=== PATIENT | male | born 1945 | race Hispanic/Latino ===

== ENCOUNTER 2017-07-04 05:41 | Inpatient (IN) | payer OTHER ==
[2017-06-30 12:00] VITALS: BP 112/65
[2017-06-30 12:40] LABS: BASOPHILS % (AUTO) 0.7 % (0.0-5.0); HEMATOCRIT 47.4 % (42-54); LYMPHOCYTES % (AUTO) 28.2 % (21.0-51.0); MEAN CORPUSCULAR HEMOGLOBIN 30.1 pg (27.0-33.0); MEAN CORPUSCULAR HGB CONC 34.1 g/dL (32.0-36.0); MEAN CORPUSCULAR VOLUME 88.1 fL (79-99); MONOCYTES % (AUTO) 7.2 % (3.0-13.0); NEUTROPHILS % (AUTO) 59.9 % (40.0-77.0); PLATELET COUNT (AUTO) 230 K/uL (130-400); RED BLOOD CELL COUNT(AUTO) 5.38 MIL/uL (4.50-6.20); RED CELL DISTRIBUTION WIDTH 13.1 % (11.0-15.5); WHITE BLOOD COUNT (AUTO) 10.3 K/uL (4.8-10.8)
[2017-06-30 12:58] LABS: CREATININE 1.2 mg/dL (0.5-1.5); POTASSIUM 4.4 mmol/L (3.5-5.1)
[2017-06-30 13:04] LABS: INR 0.94 (0.85-1.15); PARTIAL THROMBOPLASTIN TIME 27.2 SEC (26.3-35.5); PROTHROMBIN TIME 9.9 SEC (9.6-11.6)
[2017-06-30 13:11] LABS: APPEARANCE,URINE Clear (CLEAR); BILIRUBIN,URINE Negative (NEGATIVE); COLOR,URINE Yellow (YELLOW); GLUCOSE, URINE (UA) Negative (NEGATIVE); KETONES,URINE Negative (NEGATIVE); LEUKOCYTE ESTERASE ,URINE Negative (NEGATIVE); NITRATE,URINE Negative (NEGATIVE); OCCULT BLOOD,URINE Negative (NEGATIVE); PH,URINE 6.5 (5.0-8.0); PROTEIN,URINE Negative (NEGATIVE)
[~2017-07-04] VITALS: Ht 176.5 cm; Wt 87.5 kg
[2017-07-04] VITALS (17 sets, daily range): BP systolic 106–142; BP diastolic 55–81
[~2017-07-04 05:41] MED LIST: AEC81 PO; LISI-617 PO; METF850T2 PO; METO-391 PO; SIMV80TA5 PO; TUMS PO
[2017-07-04] MEDS ORDERED: ACETAMINOPHEN 325 MG TAB PO PRN ×3 (06:00→16:45)
[2017-07-04] MEDS ORDERED: SODIUM CHLORIDE 0.9% 500ML 500 ML IV SCH ×2 (06:00→16:41)
[2017-07-04] MEDS ORDERED: NITROGLYCERIN 5 MG/ML 10 ML VIAL IV ONE ×2 (07:09→21:23)
[2017-07-04] MEDS ORDERED: HEPARIN SODIUM 1000UNIT/ML 10ML VIAL ONE ×6 (07:09→22:18)
[2017-07-04] MEDS ORDERED: ISOVUE-370 50ML VIAL IV ONE ×2 (07:09→21:23)
[2017-07-04] MEDS ORDERED: SODIUM BICARB 50MEQ 50ML VIAL ONE ×3 (07:09→18:17)
[2017-07-04] MEDS ORDERED: LIDOCAINE HCL 2% 20ML ONE ×2 (07:10→21:23)
[2017-07-04] MEDS ORDERED: IOPAMIDOL-370 100 ML VIAL IV ONE ×3 (07:10→23:14)
[2017-07-04] MEDS ORDERED: SODIUM CHLORIDE 0.9% 1000ML 1,000 ML IV SCH ×2 (08:21→16:45)
[2017-07-04] MEDS ORDERED: GLUCAGON 1MG KIT 1 MG ML IM PRN ×2 (08:30→16:45)
[2017-07-04] MEDS ORDERED: DEXTROSE 50%-WATER 50 ML DISP.SYRIN IV PRN ×2 (08:30→16:45)
[2017-07-04] MEDS ORDERED: CEFUROXIME 1.5GM+NS 100ML 100 ML IV SCH (09:30)
[2017-07-04] MEDS ORDERED: WATER FOR INJECTION,STERILE 20 ML VIAL IJ SCH (10:34)
[2017-07-04] MEDS: CEFUROXIME SODIUM 1.5 GM VIAL IVP SCH ×2 (10:45→13:50)
[2017-07-04] MEDS ORDERED: INSULIN HUMULIN R 100 UNIT/ML 3ML SQ SCH (11:30)
[2017-07-04 11:39] LABS: CREATININE 1.1 mg/dL (0.5-1.5); EOSINOPHILS % (AUTO) 4.1 % (0.0-8.0); POTASSIUM 4.2 mmol/L (3.5-5.1); WHITE BLOOD COUNT (AUTO) 7.4 K/uL (4.8-10.8)
[2017-07-04 11:43] LABS: INR 0.96 (0.85-1.15); PARTIAL THROMBOPLASTIN TIME 27.2 SEC (26.3-35.5); PROTHROMBIN TIME 10.1 SEC (9.6-11.6)
[2017-07-04 11:45] LABS: BASOPHILS % (AUTO) 0.4 % (0.0-5.0); HEMATOCRIT 43.9 % (42-54); LYMPHOCYTES % (AUTO) 35.2 % (21.0-51.0); MEAN CORPUSCULAR HEMOGLOBIN 30.5 pg (27.0-33.0); MEAN CORPUSCULAR HGB CONC 34.9 g/dL (32.0-36.0); MEAN CORPUSCULAR VOLUME 87.4 fL (79-99); MONOCYTES % (AUTO) 6.1 % (3.0-13.0); NEUTROPHILS % (AUTO) 54.2 % (40.0-77.0); PLATELET COUNT (AUTO) 214 K/uL (130-400); RED BLOOD CELL COUNT(AUTO) 5.02 MIL/uL (4.50-6.20); RED CELL DISTRIBUTION WIDTH 13.1 % (11.0-15.5)
[2017-07-04 11:54] LABS: CHOLESTEROL 131 mg/dL (<200); HDL CHOLESTEROL 35 mg/dL (29-71); LDL DIRECT 82 mg/dL (0-99); TRIGLYCERIDES 134 mg/dL (30-200)
[2017-07-04 11:58] LABS: HEMOGLOBIN A1C 6.6 % (4.0-6.0)
[2017-07-04] MEDS ORDERED: PAPAVERINE HCL 30 MG/ML 2ML VIAL ONE (12:04)
[2017-07-04] MEDS ORDERED: OCTYL 2-CYANOACRYLATE 1 EACH TP ONE (12:04)
[2017-07-04] MEDS ORDERED: BACITRACIN 50,000 UNIT VIAL ONE (12:04)
[2017-07-04] MEDS ORDERED: ESMOLOL HCL 10 MG/ML 10 ML VIAL ONE (13:01)
[2017-07-04] MEDS ORDERED: GLYCOPYRROLATE 0.2 MG/ML 5 ML VIAL ONE (13:01)
[2017-07-04] MEDS ORDERED: EPINEPHRINE 1 MG/ML AMPULE ONE (13:01)
[2017-07-04] MEDS ORDERED: AMINOCAPROIC ACID 250 MG/ML 20 ML VIAL IV ONE (13:01)
[2017-07-04] MEDS ORDERED: MILRINONE-D5W 20 MG/100 ML 0 ML IV ONE (13:01)
[2017-07-04] MEDS ORDERED: PROTAMINE SULFATE 10 MG/ML 25ML VIAL IV ONE (13:01)
[2017-07-04] MEDS ORDERED: ROCURONIUM BROMIDE 10MG/1ML 5ML VL ONE (13:01)
[2017-07-04] MEDS ORDERED: NOREPINEPHRINE BITARTRATE 1 MG/1 ML ML IV ONE (13:01)
[2017-07-04] MEDS ORDERED: LIDOCAINE PF 2% 5ML ABBOJECT ONE (13:01)
[2017-07-04] MEDS ORDERED: NEOSTIGMINE METHYLSULFATE 1MG/ML IV ONE (13:01)
[2017-07-04] MEDS ORDERED: AMIODARONE HCL 900MG/18ML IV ONE (13:01)
[2017-07-04] MEDS ORDERED: PROPOFOL 10 MG/ML 20ML VIAL IV ONE (13:02)
[2017-07-04] MEDS ORDERED: FENTANYL CITRATE PF 50 MCG/1 ML 20ML VIAL IJ ONE (13:02)
[2017-07-04] MEDS ORDERED: MIDAZOLAM HCL 1 MG/ML 5ML VIAL ONE (13:02)
[2017-07-04] MEDS ORDERED: SODIUM CHLORIDE 0.9% 10 ML VIAL ONE (13:41)
[2017-07-04] MEDS ORDERED: THROMBIN-JMI 5000 UNIT/VIAL TP ONE (14:01)
[2017-07-04 14:20] LABS: ABG BASE EXCESS -1.8 mmol/L (-2.0-3.0); ABG HCO3 22.9 mmol/L (21.0-28.0); ABG OXYGEN SATURATION 99.4 % (95.0-99.0); ABG PCO2 39 mmHg (35-48)
[2017-07-04 16:24] LABS: ABG BASE EXCESS -6.5 mmol/L (-2.0-3.0); ABG PCO2 38 mmHg (35-48)
[2017-07-04] MEDS ORDERED: SODIUM BICARB 8.4% 50ML SYRINGE ONE ×2 (16:24→16:46)
[2017-07-04 16:42] LABS: ABG BASE EXCESS -1.1 mmol/L (-2.0-3.0); ABG HCO3 22.5 mmol/L (21.0-28.0); ABG OXYGEN SATURATION 98.7 % (95.0-99.0); ABG PCO2 34 mmHg (35-48)
[2017-07-04] MEDS ORDERED: INSULIN HUMULIN R 100 UNIT/ML 3ML ONE (16:44)
[2017-07-04] MEDS ORDERED: POTASSIUM CHLORIDE 20MEQ/100ML 100 ML IV ONE (16:44)
[2017-07-04] MEDS ORDERED: NITROGLYCERIN 50 MG/D5% WATER 250 BOT IV SCH (16:45)
[2017-07-04] MEDS ORDERED: ALBUMIN (HUMAN) 5% 250 ML IV PRN (16:45)
[2017-07-04] MEDS ORDERED: NOREPINEPHRINE 4MG/NS 250ML 250 ML IV PRN (16:45)
[2017-07-04] MEDS ORDERED: EPINEPHRINE 2 MG in SODIUM CHLORIDE 0.9% 250 ML IV PRN (16:45)
[2017-07-04] MEDS ORDERED: SODIUM BICARB 8.4% 50ML SYRINGE IV PRN (16:45)
[2017-07-04] MEDS ORDERED: SODIUM CHLORIDE 0.9% 250 ML IV PRN (16:45)
[2017-07-04] MEDS ORDERED: ACETAMINOPHEN 650 MG SUPPOSITORY RC PRN (16:45)
[2017-07-04] MEDS ORDERED: ONDANSETRON HCL 4 MG/2 ML VIAL IV PRN (16:45)
[2017-07-04] MEDS ORDERED: POTASSIUM PHOS 15 mMOL+NS250ML 250 ML IV PRN (16:45)
[2017-07-04] MEDS ORDERED: SODIUM CHLORIDE 0.9% 10 ML VIAL IVP PRN (16:45)
[2017-07-04] MEDS ORDERED: AMINOCAPROIC ACID 15,000 MG in SODIUM CHLORIDE 0.9% 250 ML IV SCH (16:45)
[2017-07-04] MEDS ORDERED: NICARDIPINE HCL 100 MG in SODIUM CHLORIDE 0.9% 100 ML IV PRN (16:45)
[2017-07-04] MEDS ORDERED: CALCIUM GLUCONATE 1 GM in SODIUM CHLORIDE 0.9% 50 ML IV PRN (16:45)
[2017-07-04] MEDS ORDERED: FENTANYL CITRATE PF 50 MCG/1 ML 5ML AMP IV ONE (16:52)
[2017-07-04] MEDS ORDERED: EPHEDRINE SULFATE 50 MG/ML AMPULE ONE (16:55)
[2017-07-04 18:02] LABS: HEMATOCRIT 41.6 % (42-54); MEAN CORPUSCULAR HEMOGLOBIN 29.4 pg (27.0-33.0); MEAN CORPUSCULAR HGB CONC 33.2 g/dL (32.0-36.0); MEAN CORPUSCULAR VOLUME 88.6 fL (79-99); PLATELET COUNT (AUTO) 326 K/uL (130-400); RED CELL DISTRIBUTION WIDTH 13.3 % (11.0-15.5)
[2017-07-04 18:07] LABS: WHITE BLOOD COUNT (AUTO) 39.7 K/uL (4.8-10.8)
[2017-07-04 18:13] LABS: ABG BASE EXCESS -9.1 mmol/L (-2.0-3.0); ABG HCO3 16.6 mmol/L (21.0-28.0); ABG OXYGEN SATURATION 97.2 % (95.0-99.0); ABG PCO2 35 mmHg (35-48)
[2017-07-04 18:17] LABS: CREATININE 1.5 mg/dL (0.5-1.5); MAGNESIUM 1.6 mg/dL (1.80-2.40); PHOSPHORUS 3.8 mg/dL (2.5-4.9)
[2017-07-04] MEDS: POTASSIUM CHLORIDE 20MEQ/100ML 100 ML IV PRN ×2 (18:41→19:31)
[2017-07-04 19:34] LABS: BAND NEUTROPHILS % (MANUAL) 3 % (0-2); LYMPHOCYTES % (MANUAL) 11 % (22-44); MAN.DIFF COMMENT-IMPRESSION MANUAL DIFFERENTIAL; METAMYELOCYTES % 2 % (0-0); MONOCYTES % (MANUAL) 4 % (2-9); PLATELET MORPHOLOGY COMMENT ADEQUATE; SEGMENTED NEUTROPHILS % 80 % (40-70)
[2017-07-04] MEDS ORDERED: SODIUM BICARB 50MEQ 50ML VIAL IV ONE (20:00)
[2017-07-04] MEDS ORDERED: NITROGLYCERIN 50 MG/D5% WATER 250 BOT IV PRN (20:45)
[2017-07-04 20:49] LABS: ABG HCO3 17.9 mmol/L (21.0-28.0); ABG OXYGEN SATURATION 97.3 % (95.0-99.0); ABG PCO2 34 mmHg (35-48)
[2017-07-04] MEDS: MORPHINE SULFATE 2 MG/ML 1ML SYG IV PRN (21:12)
[2017-07-04] MEDS ORDERED: ATROPINE SULFATE 0.1 MG/ML 10 ML SYG IVP ONE (21:26)
[2017-07-04] MEDS ORDERED: DOPAMINE HCL 400 MG/D5%-WATER 0 ML IV ONE (21:26)
[2017-07-04] MEDS ORDERED: EPINEPHRINE 8 MG in SODIUM CHLORIDE 0.9% 250 ML IV PRN (21:32)
[2017-07-04] MEDS ORDERED: MORPHINE SULFATE 10 MG/ML 1ML SYG ONE (21:55)
[2017-07-04 22:05] LABS: CREATINE KINASE MB 42.1 ng/mL (0.5-3.6)
[2017-07-04 22:06] LABS: TROPONIN I 7.42 ng/mL (0.00-0.06)
[2017-07-05] VITALS (23 sets, daily range): BP systolic 105–168; BP diastolic 47–70
[2017-07-05] MEDS: MORPHINE SULFATE 4 MG/1ML SYG IV PRN ×2 (01:07→09:04)
[2017-07-05] MEDS: FAMOTIDINE/PF 20 MG/2 ML VIAL IV SCH ×3 (01:13→20:42)
[2017-07-05] MEDS: CEFUROXIME 1.5GM+NS 100ML 100 ML IV SCH ×2 (01:13→12:26)
[2017-07-05] MEDS: PROPOFOL 1000 MG/100 ML 100 ML IV PRN ×2 (01:34→07:37)
[2017-07-05] MEDS: MAGNESIUM 2GM PREMIX 50ML 50 ML IV PRN ×2 (01:46→22:34)
[2017-07-05] MEDS ORDERED: CLOPIDOGREL BISULFATE 75 MG TAB PO SCH (02:00)
[2017-07-05] MEDS ORDERED: ASPIRIN 325 MG TABLET PO SCH (02:00)
[2017-07-05 02:39] LABS: CREATINE KINASE MB 277.6 ng/mL (0.5-3.6)
[2017-07-05 03:18] LABS: TROPONIN I 288.93 ng/mL (0.00-0.06)
[2017-07-05] MEDS: POTASSIUM CHLORIDE 20MEQ/100ML 100 ML IV PRN ×2 (03:43→05:29)
[2017-07-05 03:57] LABS: HEMATOCRIT 37.8 % (42-54); MEAN CORPUSCULAR HEMOGLOBIN 30.5 pg (27.0-33.0); MEAN CORPUSCULAR HGB CONC 34.5 g/dL (32.0-36.0); MEAN CORPUSCULAR VOLUME 88.4 fL (79-99); PLATELET COUNT (AUTO) 286 K/uL (130-400); RED BLOOD CELL COUNT(AUTO) 4.27 MIL/uL (4.50-6.20); RED CELL DISTRIBUTION WIDTH 13.2 % (11.0-15.5); WHITE BLOOD COUNT (AUTO) 26.2 K/uL (4.8-10.8)
[2017-07-05 04:21] LABS: CREATININE 1.7 mg/dL (0.5-1.5); MAGNESIUM 1.5 mg/dL (1.80-2.40); PHOSPHORUS 2.2 mg/dL (2.5-4.9); POTASSIUM 3.2 mmol/L (3.5-5.1)
[2017-07-05] MEDS ORDERED: PHARMACY COMMUNICATION MISC SCH (05:15)
[2017-07-05] MEDS ORDERED: CLOPIDOGREL BISULFATE 300 MG TAB PO SCH (07:30)
[2017-07-05] MEDS: ASPIRIN 81MG TAB.CHEW PO SCH (08:57)
[2017-07-05 09:42] LABS: CREATINE KINASE MB 366.3 ng/mL (0.5-3.6); POTASSIUM 4.5 mmol/L (3.5-5.1)
[2017-07-05] MEDS: INSULIN REGULAR, HUMAN 3ML 100 UNIT in SODIUM CHLORIDE 0.9% 99 ML IV SCH ×4 (09:49→21:09)
[2017-07-05 10:26] LABS: CREATININE 1.3 mg/dL (0.5-1.5); MAGNESIUM 2.3 mg/dL (1.80-2.40); POTASSIUM 4.6 mmol/L (3.5-5.1)
[2017-07-05 10:30] LABS: TROPONIN I 112.04 ng/mL (0.00-0.06)
[2017-07-05 12:34] LABS: ABG BASE EXCESS 1.3 mmol/L (-2.0-3.0); ABG HCO3 26.1 mmol/L (21.0-28.0); ABG PCO2 42 mmHg (35-48)
[2017-07-05] MEDS: HYDROCODONE/ACETAMINOPHEN 5/325 MG TAB PO PRN ×2 (15:34→21:48)
[2017-07-05] MEDS ORDERED: FUROSEMIDE 10 MG/ML 2ML VIAL IV SCH (18:45)
[2017-07-05] MEDS: MORPHINE SULFATE 2 MG/ML 1ML SYG IV PRN (18:48)
[2017-07-05] MEDS: ATORVASTATIN CALCIUM 40 MG TABLET PO SCH (20:42)
[2017-07-05] MEDS ORDERED: METOPROLOL TARTRATE 25 MG TAB PO SCH (21:00)
[2017-07-05] MEDS ORDERED: ENOXAPARIN SODIUM 80 MG/0.8 ML SQ SCH (22:00)
[2017-07-05 22:31] LABS: MAGNESIUM 1.9 mg/dL (1.80-2.40); POTASSIUM 4.3 mmol/L (3.5-5.1)
[2017-07-06] VITALS (25 sets, daily range): BP systolic 95–129; BP diastolic 50–74
[2017-07-06] MEDS ORDERED: ENOXAPARIN SODIUM 80 MG/0.8 ML SQ SCH
[2017-07-06] MEDS: CEFUROXIME 1.5GM+NS 100ML 100 ML IV SCH (00:26)
[2017-07-06] MEDS: HYDROCODONE/ACETAMINOPHEN 5/325 MG TAB PO PRN ×3 (04:12→14:26)
[2017-07-06 04:54] LABS: CREATININE 1.2 mg/dL (0.5-1.5); MAGNESIUM 2.4 mg/dL (1.80-2.40); PHOSPHORUS 4.3 mg/dL (2.5-4.9); POTASSIUM 4.1 mmol/L (3.5-5.1)
[2017-07-06] MEDS: POTASSIUM CHLORIDE 20MEQ/100ML 100 ML IV PRN (05:01)
[2017-07-06] MEDS ORDERED: CAMPHOR/MENTHOL/PHENOL 10 GM OINT TP SCH (06:15)
[2017-07-06] MEDS: INSULIN HUMULIN R 100 UNIT/ML 3ML SQ SCH ×4 (06:35→21:04)
[2017-07-06] MEDS: ASPIRIN 81MG TAB.CHEW PO SCH (08:21)
[2017-07-06] MEDS: PANTOPRAZOLE SODIUM 40 MG TABLET.DR PO SCH (08:21)
[2017-07-06] MEDS: METOPROLOL TARTRATE 25 MG TAB PO SCH ×2 (08:22→20:59)
[2017-07-06] MEDS: FAMOTIDINE/PF 20 MG/2 ML VIAL IV SCH ×2 (08:25→20:58)
[2017-07-06] MEDS ORDERED: FOLIC ACID 5 MG/ML 10 ML VIAL IM SCH (09:15)
[2017-07-06] MEDS: APIXABAN 5 MG TABLET PO SCH ×2 (14:25→20:59)
[2017-07-06] MEDS: ATORVASTATIN CALCIUM 40 MG TABLET PO SCH (20:58)
[2017-07-07] VITALS (22 sets, daily range): BP systolic 84–121; BP diastolic 55–72
[2017-07-07] MEDS: HYDROCODONE/ACETAMINOPHEN 5/325 MG TAB PO PRN ×3 (03:05→18:44)
[2017-07-07 05:16] LABS: HEMATOCRIT 30.9 % (42-54); MEAN CORPUSCULAR HEMOGLOBIN 30.6 pg (27.0-33.0); MEAN CORPUSCULAR HGB CONC 34.8 g/dL (32.0-36.0); PLATELET COUNT (AUTO) 157 K/uL (130-400); RED BLOOD CELL COUNT(AUTO) 3.51 MIL/uL (4.50-6.20); RED CELL DISTRIBUTION WIDTH 13.3 % (11.0-15.5); WHITE BLOOD COUNT (AUTO) 19.2 K/uL (4.8-10.8)
[2017-07-07 05:28] LABS: POTASSIUM 3.9 mmol/L (3.5-5.1)
[2017-07-07 05:48] LABS: BAND NEUTROPHILS % (MANUAL) 13 % (0-2); LYMPHOCYTES % (MANUAL) 14 % (22-44); MAN.DIFF COMMENT-IMPRESSION MANUAL DIFFERENTIAL; MONOCYTES % (MANUAL) 1 % (2-9); SEGMENTED NEUTROPHILS % 72 % (40-70)
[2017-07-07] MEDS: POTASSIUM CHLORIDE 20MEQ/100ML 100 ML IV PRN (05:56)
[2017-07-07] MEDS: INSULIN HUMULIN R 100 UNIT/ML 3ML SQ SCH ×4 (06:05→20:38)
[2017-07-07] MEDS: CLOPIDOGREL BISULFATE 75 MG TAB PO SCH (09:01)
[2017-07-07] MEDS: ASPIRIN 81MG TAB.CHEW PO SCH (09:02)
[2017-07-07] MEDS: FOLIC ACID 1 MG TABLET PO SCH (09:02)
[2017-07-07] MEDS: APIXABAN 5 MG TABLET PO SCH ×2 (09:02→20:32)
[2017-07-07] MEDS: PANTOPRAZOLE SODIUM 40 MG TABLET.DR PO SCH (09:02)
[2017-07-07] MEDS: METOPROLOL TARTRATE 25 MG TAB PO SCH ×3 (09:02→20:32)
[2017-07-07] MEDS: FAMOTIDINE/PF 20 MG/2 ML VIAL IV SCH ×2 (09:03→20:33)
[2017-07-07] MEDS: ATORVASTATIN CALCIUM 40 MG TABLET PO SCH (20:32)
[2017-07-07] MEDS ORDERED: LOSARTAN 50 MG TABLET PO SCH (21:00)
[2017-07-08] VITALS (20 sets, daily range): BP systolic 84–122; BP diastolic 52–77
[2017-07-08 04:18] LABS: HEMATOCRIT 31.7 % (42-54); MEAN CORPUSCULAR HEMOGLOBIN 31.1 pg (27.0-33.0); MEAN CORPUSCULAR HGB CONC 35.1 g/dL (32.0-36.0); MEAN CORPUSCULAR VOLUME 88.4 fL (79-99); NUCLEATED RED BLOOD CELLS 0.1 % (0.0-0.19); PLATELET COUNT (AUTO) 186 K/uL (130-400); RED BLOOD CELL COUNT(AUTO) 3.58 MIL/uL (4.50-6.20); RED CELL DISTRIBUTION WIDTH 12.9 % (11.0-15.5); WHITE BLOOD COUNT (AUTO) 18.5 K/uL (4.8-10.8)
[2017-07-08 04:25] LABS: BAND NEUTROPHILS % (MANUAL) 3 % (0-2); EOSINOPHILS % (MANUAL) 2 % (1-6); LYMPHOCYTES % (MANUAL) 19 % (22-44); MAN.DIFF COMMENT-IMPRESSION MANUAL DIFFERENTIAL; MONOCYTES % (MANUAL) 5 % (2-9); PLATELET MORPHOLOGY COMMENT ADEQUATE; SEGMENTED NEUTROPHILS % 71 % (40-70)
[2017-07-08] MEDS: INSULIN HUMULIN R 100 UNIT/ML 3ML SQ SCH ×4 (06:45→21:14)
[2017-07-08] MEDS: FAMOTIDINE/PF 20 MG/2 ML VIAL IV SCH (09:00)
[2017-07-08] MEDS: FOLIC ACID 1 MG TABLET PO SCH (09:30)
[2017-07-08] MEDS: METOPROLOL TARTRATE 25 MG TAB PO SCH ×3 (09:30→20:52)
[2017-07-08] MEDS: APIXABAN 5 MG TABLET PO SCH ×2 (09:30→20:51)
[2017-07-08] MEDS: PANTOPRAZOLE SODIUM 40 MG TABLET.DR PO SCH (09:30)
[2017-07-08] MEDS: ASPIRIN 81MG TAB.CHEW PO SCH (09:30)
[2017-07-08] MEDS: CLOPIDOGREL BISULFATE 75 MG TAB PO SCH (09:30)
[2017-07-08] MEDS: HYDROCODONE/ACETAMINOPHEN 5/325 MG TAB PO PRN (09:31)
[2017-07-08] MEDS ORDERED: GABAPENTIN 100 MG CAPSULE PO SCH (10:00)
[2017-07-08] MEDS ORDERED: CALCIUM GLUCONATE 1 GM in SODIUM CHLORIDE 0.9% 50 ML IV SCH (19:00)
[2017-07-08] MEDS: GABAPENTIN 100 MG CAPSULE PO SCH (20:51)
[2017-07-08] MEDS: ATORVASTATIN CALCIUM 40 MG TABLET PO SCH (20:51)
[2017-07-08] MEDS: AMIODARONE HCL 200 MG TABLET PO SCH (20:51)
[2017-07-09] VITALS (13 sets, daily range): BP systolic 96–116; BP diastolic 47–71
[2017-07-09] MEDS: INSULIN HUMULIN R 100 UNIT/ML 3ML SQ SCH ×4 (06:59→21:00)
[2017-07-09] MEDS: TRAMADOL HCL 50 MG TABLET PO PRN ×2 (08:48→19:03)
[2017-07-09] MEDS: FOLIC ACID 1 MG TABLET PO SCH (08:48)
[2017-07-09] MEDS: PANTOPRAZOLE SODIUM 40 MG TABLET.DR PO SCH (08:48)
[2017-07-09] MEDS: APIXABAN 5 MG TABLET PO SCH ×2 (08:48→22:09)
[2017-07-09] MEDS: AMIODARONE HCL 200 MG TABLET PO SCH ×3 (08:49→22:09)
[2017-07-09] MEDS: ASPIRIN 81MG TAB.CHEW PO SCH (08:49)
[2017-07-09] MEDS: CLOPIDOGREL BISULFATE 75 MG TAB PO SCH (08:49)
[2017-07-09] MEDS: GABAPENTIN 100 MG CAPSULE PO SCH ×2 (08:49→22:10)
[2017-07-09] MEDS: METOPROLOL TARTRATE 25 MG TAB PO SCH ×3 (08:49→23:19)
[2017-07-09] MEDS: POTASSIUM CHLORIDE 20 MEQ ERTAB PO SCH (14:59)
[2017-07-09] MEDS: FUROSEMIDE 20 MG TABLET PO SCH (15:01)
[2017-07-09] MEDS: ATORVASTATIN CALCIUM 40 MG TABLET PO SCH (22:09)
[2017-07-10] VITALS (7 sets, daily range): BP systolic 94–125; BP diastolic 57–78
[2017-07-10] MEDS: METOPROLOL TARTRATE 25 MG TAB PO SCH ×3 (05:42→22:00)
[2017-07-10] MEDS: INSULIN HUMULIN R 100 UNIT/ML 3ML SQ SCH ×4 (05:43→21:08)
[2017-07-10] MEDS: GABAPENTIN 100 MG CAPSULE PO SCH (10:11)
[2017-07-10] MEDS: CLOPIDOGREL BISULFATE 75 MG TAB PO SCH (10:11)
[2017-07-10] MEDS: FUROSEMIDE 20 MG TABLET PO SCH (10:12)
[2017-07-10] MEDS: POTASSIUM CHLORIDE 20 MEQ ERTAB PO SCH (10:13)
[2017-07-10] MEDS: FOLIC ACID 1 MG TABLET PO SCH (10:13)
[2017-07-10] MEDS: AMIODARONE HCL 200 MG TABLET PO SCH ×3 (10:14→21:06)
[2017-07-10] MEDS: PANTOPRAZOLE SODIUM 40 MG TABLET.DR PO SCH (10:14)
[2017-07-10] MEDS: APIXABAN 5 MG TABLET PO SCH ×2 (10:14→21:06)
[2017-07-10] MEDS: ASPIRIN 81MG TAB.CHEW PO SCH (10:14)
[2017-07-10] MEDS: TRAMADOL HCL 50 MG TABLET PO PRN (20:39)
[2017-07-10] MEDS: ATORVASTATIN CALCIUM 40 MG TABLET PO SCH (21:06)
[2017-07-11 03:25] VITALS: BP 103/66
[2017-07-11 04:17] LABS: CREATININE 1.1 mg/dL (0.5-1.5); POTASSIUM 3.9 mmol/L (3.5-5.1)
[2017-07-11] MEDS: METOPROLOL TARTRATE 25 MG TAB PO SCH ×2 (06:00→20:53)
[2017-07-11] MEDS: INSULIN HUMULIN R 100 UNIT/ML 3ML SQ SCH ×4 (06:42→20:53)
[2017-07-11] MEDS: TRAMADOL HCL 50 MG TABLET PO PRN ×2 (06:46→20:56)
[2017-07-11 07:32] VITALS: BP 106/67
[2017-07-11] MEDS: PANTOPRAZOLE SODIUM 40 MG TABLET.DR PO SCH (08:43)
[2017-07-11] MEDS: ASPIRIN 81MG TAB.CHEW PO SCH (08:43)
[2017-07-11] MEDS: AMIODARONE HCL 200 MG TABLET PO SCH ×2 (08:43→20:53)
[2017-07-11] MEDS: FUROSEMIDE 20 MG TABLET PO SCH (08:43)
[2017-07-11] MEDS: CLOPIDOGREL BISULFATE 75 MG TAB PO SCH (08:43)
[2017-07-11] MEDS: FOLIC ACID 1 MG TABLET PO SCH (08:43)
[2017-07-11] MEDS: APIXABAN 5 MG TABLET PO SCH ×2 (08:43→20:52)
[2017-07-11] MEDS: POTASSIUM CHLORIDE 20 MEQ ERTAB PO SCH (08:44)
[2017-07-11] MEDS: LACTULOSE 20 GM/30 ML UDCUP PO PRN (09:18)
[2017-07-11 11:24] VITALS: BP 104/64
[2017-07-11 16:17] VITALS: BP 113/70
[2017-07-11 19:04] VITALS: BP 118/64
[2017-07-11] MEDS: ATORVASTATIN CALCIUM 40 MG TABLET PO SCH (20:53)
[2017-07-11 23:14] VITALS: BP 105/62
[2017-07-12 03:33] VITALS: BP 115/53
[2017-07-12] MEDS: LACTULOSE 20 GM/30 ML UDCUP PO PRN (06:18)
[2017-07-12] MEDS: INSULIN HUMULIN R 100 UNIT/ML 3ML SQ SCH ×3 (06:54→16:30)
[2017-07-12 07:27] VITALS: BP 118/76
[2017-07-12] MEDS: METOPROLOL TARTRATE 25 MG TAB PO SCH (08:23)
[2017-07-12] MEDS: APIXABAN 5 MG TABLET PO SCH (08:23)
[2017-07-12] MEDS: PANTOPRAZOLE SODIUM 40 MG TABLET.DR PO SCH (08:23)
[2017-07-12] MEDS: ASPIRIN 81MG TAB.CHEW PO SCH (08:23)
[2017-07-12] MEDS: FOLIC ACID 1 MG TABLET PO SCH (08:23)
[2017-07-12] MEDS: CLOPIDOGREL BISULFATE 75 MG TAB PO SCH (08:23)
[2017-07-12] MEDS: AMIODARONE HCL 200 MG TABLET PO SCH (08:23)
[2017-07-12] MEDS: POTASSIUM CHLORIDE 20 MEQ ERTAB PO SCH (08:24)
[2017-07-12] MEDS: FUROSEMIDE 20 MG TABLET PO SCH (08:24)
[2017-07-12] MEDS: TRAMADOL HCL 50 MG TABLET PO PRN (09:08)
[2017-07-12 11:29] VITALS: BP 96/58
[2017-07-12 16:17] VITALS: BP 105/67
[2017-09-26] MEDS ORDERED: FOLI1TAB15 PO (14:47)
[2017-09-26] MEDS ORDERED: PANT40TA25 PO (14:47)
[2017-09-26] MEDS ORDERED: AMIO200T2 PO (14:47)
[2017-09-26] MEDS ORDERED: ATOR-2 PO (14:47)
[2017-09-26] MEDS ORDERED: LOSA50TA37 PO (14:47)
[2017-09-26] MEDS ORDERED: APIX5TAB PO (14:47)
[2017-09-26] MEDS ORDERED: METO25TA6 PO (14:47)
[2017-09-28] MEDS ORDERED: CLOP75TA32 PO (10:51)
[2017-09-28] MEDS ORDERED: FURO20TA6 PO (10:56)
[2017-09-28] MEDS ORDERED: SPIR25TA4 PO (10:56)
== END 2017-07-12 19:30 | DRG 231 ==
LOC: DAH 05:41 → 2CV 06:00 → 2CH 07-06 16:00 → 2DH 07-09 17:12
PROVIDERS: ADMIT Thoracic Surgery (Cardiothoracic Vascular Surgery); ATTEND Thoracic Surgery (Cardiothoracic Vascular Surgery)
PROC: 4A023N7 Measurement of Cardiac Sampling and Pressure, Left Heart, Percutaneous Approach (ICD-10-PCS; 2017-07-04)
PROC: 06BQ3ZZ Excision of Left Saphenous Vein, Percutaneous Approach (ICD-10-PCS; 2017-07-04)
PROC: B2111ZZ Fluoroscopy of Multiple Coronary Arteries using Low Osmolar Contrast (ICD-10-PCS; 2017-07-04)
PROC: B2151ZZ Fluoroscopy of Left Heart using Low Osmolar Contrast (ICD-10-PCS; 2017-07-04)
PROC: 5A1935Z Respiratory Ventilation, Less than 24 Consecutive Hours (ICD-10-PCS; 2017-07-04)
PROC: 0BH17EZ Insertion of Endotracheal Airway into Trachea, Via Natural or Artificial Opening (ICD-10-PCS; 2017-07-04)
PROC: 021209W Bypass Coronary Artery, Three Arteries from Aorta with Autologous Venous Tissue, Open Approach (ICD-10-PCS; 2017-07-04 13:38)
PROC: 02100Z9 Bypass Coronary Artery, One Artery from Left Internal Mammary, Open Approach (ICD-10-PCS; 2017-07-04 13:38)
PROC: 027135Z Dilation of Coronary Artery, Two Arteries with Two Drug-eluting Intraluminal Devices, Percutaneous Approach (ICD-10-PCS; principal; 2017-07-05)
PROC: 02703ZZ Dilation of Coronary Artery, One Artery, Percutaneous Approach (ICD-10-PCS; 2017-07-05)
DX: I25.119 Atherosclerotic heart disease of native coronary artery with unspecified angina pectoris (principal); I21.3 ST elevation (STEMI) myocardial infarction of unspecified site; N17.9 Acute kidney failure, unspecified; D68.59 Other primary thrombophilia; E11.22 Type 2 diabetes mellitus with diabetic chronic kidney disease; D69.6 Thrombocytopenia, unspecified; D62 Acute posthemorrhagic anemia; N18.9 Chronic kidney disease, unspecified; D72.829 Elevated white blood cell count, unspecified; E11.65 Type 2 diabetes mellitus with hyperglycemia; E78.5 Hyperlipidemia, unspecified; I12.9 Hypertensive chronic kidney disease with stage 1 through stage 4 chronic kidney disease, or unspecified chronic kidney disease; I25.82 Chronic total occlusion of coronary artery; I51.3 Intracardiac thrombosis, not elsewhere classified; Z79.01 Long term (current) use of anticoagulants; Z79.02 Long term (current) use of antithrombotics/antiplatelets; Z79.82 Long term (current) use of aspirin; Z82.3 Family history of stroke; Z82.49 Family history of ischemic heart disease and other diseases of the circulatory system
CPT/HCPCS: 33967; 36415; 36600; 71045; 80048; 80061; 81003; 82330; 82435; 82550; 82553; 82803; 82947; 82948; 83036; 83090; 83605; 83735; 83874; 84100; 84132; 84295; 84484; 85018; 85025; 85027; 85210; 85220; 85300; 85303; 85305; 85306; 85347; 85610; 85730; 85732; 86850; 86900; 86901; 86922; 88313; 93005; 93306; 93455; 93458; 93880; 94002; 94003; 94010; 94150; A4606; A7048; C1725; C1760; C1769; C1887; C1894; C9600; J0171; J0282; J0461; J0610; J0697; J1265; J1644; J1650; J1815; J1940; J2001; J2250; J2260; J2270; J2405; J2440; J2704; J2710; J2720; J3010; J3475; J3480; J3490; J7030; J7040; P9045; Q9967

== ENCOUNTER → 2017-09-05 | Outpatient (CLI) | payer OTHER ==
[~2017-09-05] MED LIST changes: +AMIO200T2 PO; +APIX5TAB PO; +ATOR-2 PO; +CLOP75TA32 PO; +FOLI1TAB15 PO; +FURO20TA6 PO; +LOSA50TA37 PO; +METO25TA6 PO; +PANT40TA25 PO; +SPIR25TA4 PO
== END | disposition home or self-care (01) ==
LOC: SHCH 14:20
PROVIDERS: ATTEND Internal Medicine Cardiovascular Disease
DX: I08.1 Rheumatic disorders of both mitral and tricuspid valves (principal); I25.10 Atherosclerotic heart disease of native coronary artery without angina pectoris; I10 Essential (primary) hypertension
CPT/HCPCS: 93306

== ENCOUNTER → 2019-01-30 | Outpatient (CLI) | payer OTHER ==
[~2019-01-30] MED LIST changes: -AEC81 PO; -AMIO200T2 PO; +AMIO200T5 PO; -LISI-617 PO; -LOSA50TA37 PO; +LOSA50TA64 PO; +METF-445 PO; -METF850T2 PO; -METO-391 PO; -SIMV80TA5 PO; -SPIR25TA4 PO; +SPIR25TA6 PO; -TUMS PO
== END | disposition home or self-care (01) ==
LOC: SHCH 10:52
PROVIDERS: ATTEND Internal Medicine Cardiovascular Disease
DX: I08.1 Rheumatic disorders of both mitral and tricuspid valves (principal); I10 Essential (primary) hypertension
CPT/HCPCS: 93306

== ENCOUNTER → 2020-04-29 | Outpatient (CLI) | payer OTHER ==
[~2020-04-29] MED LIST changes: -AMIO200T5 PO; +AMIO200T6 PO; -PANT40TA25 PO; +PANT40TA54 PO
== END | disposition home or self-care (01) ==
LOC: SHCH 10:42
PROVIDERS: ATTEND Internal Medicine Cardiovascular Disease
DX: R01.1 Cardiac murmur, unspecified (principal); R09.89 Other specified symptoms and signs involving the circulatory and respiratory systems
CPT/HCPCS: 93306; 93356; 93880

== ENCOUNTER → 2023-02-07 | Outpatient (CLI) | payer OTHER ==
[~2023-02-07] MED LIST changes: -AMIO200T6 PO; +AMIO200T68 PO
== END | disposition home or self-care (01) ==
LOC: SHCH 08:37
PROVIDERS: ATTEND Internal Medicine Cardiovascular Disease
DX: I11.9 Hypertensive heart disease without heart failure (principal); R06.00 Dyspnea, unspecified; E11.9 Type 2 diabetes mellitus without complications; E78.5 Hyperlipidemia, unspecified; Z95.1 Presence of aortocoronary bypass graft
CPT/HCPCS: 93306

== ENCOUNTER → 2024-06-28 | Outpatient (CLI) | payer OTHER ==
--- NOTE | 2024-07-03 06:49 | HMCSR ---
APPROVED REPORT EXAM: Two-dimensional and M-mode echocardiogram with Doppler and color Doppler. INDICATION ICD: I25.5 Ischemic cardiomyopathy Murmur Abnormal ECG 2D Dimensions RVDd3.6 cmLVEF(%)47.4 (>50%)LVED Vol(simp.)146.0 mL IVSd0.8 (0.7-1.1cm)FS(%)24 %LVES Vol(simp.)77.0 mL LVDd4.7 (3.8-5.6cm)Ao Root(2D)3.2 (2.0-3.7cm)LVEF(%, simp.)48 % PWd0.7 (0.7-1.1cm)LVOT diam1.8 (1.8-2.4cm)LA ESV INDEX (BP)32.15 mL/m2 LVDs3.6 (2.5-4.0cm)IVC diam1.8 cm Aortic Valve AoV Vmax1.1 m/Crystal Peak GR4.9 mmHgLVOT Vmax1.0 m/s AoV VTI0.3 mAo Mean GR2.4 mmHgLVOT VTI0.25 m JANAK (VMAX)2.4 cm2AVA (VTI) 2.4 cm2 Mitral Valve MV E Vmax69.3 cm/sDECEL Lsdo759 ms MV A Vmax81.3 cm/sP 1/2 T64 ms E/A ratio0.9MVA (PHT)3.5 cm2 MR Max PG84 mmHg TDI E/E' Medial9.6E/E' Lateral7.6 Pulmonary Valve PV Vmax0.9 m/sPV VTI0.23 mPV Mean GR2 mmHg PV Peak GR3.3 mmHgPI End Destiny. Arsalan 1.1 cm/s Tricuspid Valve TR Vmax2.5 m/sRAP (EST) 8 scNtHTUH87.6 mmHg TR Peak GR24.6 mmHg Left Ventricle Left ventricular cavity size is normal. Thinned, akinetic to dyakinetic apical cap, suggestive of rem ote apical CA. There is normal left ventricular wall thickness. LVEF is 40%. No left ventricle thromb us noted on this study. Indeterminate diastolic dysfunction. Right Ventricle The right ventricle is normal size. Right ventricular systolic function is mildly reduced. Atria The left atrium size is normal. The right atrium size is normal. Aortic Valve Aortic valve is trileaflet. Aortic valve leaflets are sclerotic but open well. Trace aortic regurgita tion. There is no aortic valvular stenosis. Mitral Valve Mitral valve leaflets are mildly sclerotic but opens well. Mitral regurgitation is trace to mild. The re is no mitral valve stenosis. Tricuspid Valve The tricuspid valve leaflets appear normal. There is trace to mild tricuspid regurgitation. Right mari tricular systolic pressure is estimated at 30-40 mmHg. Pulmonic Valve The pulmonic valve leaflets are thin and pliable; valve motion is normal. There is trace to mild valv ular regurgitation. Great Vessels The aortic root is normal in size. IVC is dilated and collapses >50% with inspiration. Pericardium No pericardial effusion. Conclusion Left ventricular cavity size is normal. LVEF is 40%. Thinned, akinetic to dyakinetic apical cap, suggestive of remote apical CA. The right ventricle is normal size. Right ventricular systolic function is mildly reduced. The left atrium size is normal. Aortic valve is trileaflet. Aortic valve leaflets are sclerotic but open well. Trace aortic regurgitation. Mitral valve leaflets are mildly sclerotic but opens well. Mitral regurgitation is trace to mild. There is trace to mild tricuspid regurgitation. Right ventricular systolic pressure is estimated at 30-40 mmHg. There is trace to mild valvular regurgitation. The aortic root is normal in size. IVC is dilated and collapses >50% with inspiration. No pericardial effusion.
== END | disposition home or self-care (01) ==
LOC: SHCH 12:40
PROVIDERS: ATTEND Internal Medicine Cardiovascular Disease
DX: I08.8 Other rheumatic multiple valve diseases (principal); I42.0 Dilated cardiomyopathy; R94.31 Abnormal electrocardiogram [ECG] [EKG]; R01.1 Cardiac murmur, unspecified
CPT/HCPCS: 93306

== ENCOUNTER → 2024-07-30 | Outpatient (CLI) | payer OTHER ==
[~2024-07-30] MED LIST changes: +IOHEXOL 350 MG/ML 100ML INFUS..BTL IV ONE
--- NOTE | 2024-07-30 12:38 | HMCIMG ---
CT CARDIAC ANGIO W/CONT. CCTA REASON: CHEST PAIN COMPARISON: None TECHNIQUE: Images are obtained through the heart in the axial plane before and during bolus IV contrast infusion, 100 cc Omnipaque 350. 2-D and 3-D multiplanar reconstruction images were then performed. The injection had to be repeated once due to motion artifact on the first sequence, total contrast volume was 200 cc. FINDINGS: This dictation is for the noncardiac findings only. Cardiac and coronary artery findings are reported separately. Visualized portions of the lungs are clear. There is normal-appearing pulmonary interstitium. There is no hilar or mediastinal lymphadenopathy. Chest wall structures appear unremarkable. IMPRESSION: 1. Unremarkable noncardiac portions of CT cardiac angiography.
--- NOTE | 2024-08-09 11:32 | CARDIOLOGY ---
RAD REPORT: [facility] CT ANGIO RADIOLOGY REPORT: CORONARY CT ANGIOGRAPHY DATE: Aug 09, 2024 QUALITY: Excellent CLINICAL HISTORY AND INDICATION: [ coronary artery bypass graft patency ] TECHNIQUE: After obtaining a preliminary steerer image, contrast imaging performed on an [employer] [id number] scanner. A dedicated, limited window, coronary imaging protocol was used, with single breath-hold, retrospective ECG gating, and automated arrhythmia rejection. 100 cc of low osmolar contrast agent: Omnipaque 350 was delivered via a 18-gauge IV catheter in the right antecubital fossa, using a power injector and followed by 60 cc of normal saline bolus as a chaser. Collimated images were reformatted at 0.5 mm intervals, and sent to an offline independent workstation for interpretation, using 3D anatomic reconstructions: Curved multiplanar reconstructions, maximum intensity projections, and multiplan ar imaging. No metoprolol was administered prior to scanning due to low baseline heart rate. 0.4 mg SL nitroglycerin was given. CORONARY ARTERY DESCRIPTIONS: The coronary arteries arise in normal position. Left main coronary artery: Normal caliber vessel that bifurcates into the LAD and LCx. No stenosis. Left anterior descending coronary artery: Normal caliber vessel and gives rise to diagonal and septal branches. Proximal LAD drug eluting stent. Distal LAD drug eluting stent. Poor visualization of LAD due to motion artifact. Left circumflex coronary artery: Normal caliber, nondominant and gives rise to a large OM branch. The LCx is poorly visualized due to motion artifact. Proximal to mid LCx drug eluting stent. Occluded OM 1. Right coronary artery: Large, dominant vessel giving rise to the PL and PDA branches. Severe proximal to mid RCA stenosis. CORONARY ARTERY BYPASS GRAFT DESCRIPTIONS: Atretic CHEATHAM to LAD. Patent SVG to D1. Patent SVG to RCA. Thoracic Aorta: Normal diameter. Lacy Caicedo MD Cardiovascular Disease [facility] LACY CAICEDO MD Aug 09, 2024 11:32
== END | disposition home or self-care (01) ==
LOC: RAH 09:37
PROVIDERS: ATTEND Internal Medicine Cardiovascular Disease
DX: R07.9 Chest pain, unspecified (principal); Z95.1 Presence of aortocoronary bypass graft
CPT/HCPCS: 75574; Q9967